=== PATIENT | male | born 1955 | race Caucasian/White ===

== ENCOUNTER → 2019-07-27 | Outpatient (CLI) | payer OTHER | END | disposition home or self-care (01) | LOC: RADUSWWP 12:58 | PROVIDERS: ATTEND Family Medicine | DX: I73.9 Peripheral vascular disease, unspecified (principal) | CPT/HCPCS: 93922 ==

== ENCOUNTER 2019-08-01 14:12 | Emergency (ER) | payer OTHER ==
[2019-08-01 14:22] VITALS: PULSE 75
--- NOTE | 2019-08-01 15:00 | ED ---
Abdominal Pain HPI - General Chief Complaint: Abdominal Pain Stated Complaint: Possible bowel blockage Time Seen by Provider: 08/01/19 14:17 Source: patient, RN notes reviewed Mode of arrival: ambulatory Limitations: no limitations - History of Present Illness Initial Comments: 63-year-old male presents emergency Department with chief complaint of abdominal pain, abdominal bloating 3 days. Patient has not passed any gas or stool 3 days ago that she is constipated took some laxatives with no improvement. Patient was seen at urgent care when she had x-rays and showed dilated bowel loops. Patient was sent over for further evaluation rule out bowel obstruction. Patient's had prior hernia repair, has no difficulty with urination no dysuria no fevers or chills he's had some nausea without vomiting no chest pain or shortness breath. - Related Data Previous Rx's Medication Instructions Recorded Ondansetron Odt [Zofran Odt] 4 mg PO Q8HR PRN #10 tab 08/01/19 Tamsulosin [Flomax] 0.4 mg PO DAILY #7 cap 08/01/19 Allergies Allergy/AdvReac Type Severity Reaction Status Date / Time No Known Allergies Allergy Verified 08/01/19 14:16 Review of Systems ROS Statement: Those systems with pertinent positive or pertinent negative responses have been documented in the HPI. ROS Other: All systems not noted in ROS Statement are negative. Past Medical History Past Medical History: Hypertension Additional Past Medical History / Comment(s): kidney stones History of Any Multi-Drug Resistant Organisms: None Reported Past Surgical History: Hernia Repair Additional Past Surgical History / Comment(s): lithotripsy Past Psychological History: No Psychological Hx Reported Smoking Status: Never smoker Past Alcohol Use History: Daily Past Drug Use History: None Reported General Exam Limitations: no limitations General appearance: alert, in no apparent distress Head exam: Present: atraumatic, normocephalic, normal inspection Neck exam: Present: normal inspection. Absent: tenderness, meningismus, lymphadenopathy Respiratory exam: Present: normal lung sounds bilaterally. Absent: respiratory distress, wheezes, rales, rhonchi, stridor Cardiovascular Exam: Present: regular rate, normal rhythm, normal heart sounds. Absent: systolic murmur, diastolic murmur, rubs, gallop, clicks GI/Abdominal exam: Present: soft, distended, tenderness, normal bowel sounds. Absent: guarding, rebound, rigid Back exam: Absent: CVA tenderness (R), CVA tenderness (L) Neurological exam: Present: alert, oriented X3 Skin exam: Present: warm, dry, intact, normal color. Absent: rash Course Vital Signs 08/01/19 14:17 Temperature 97.9 F Pulse Rate 75 Respiratory 18 Rate Blood Pressure 166/102 O2 Sat by Pulse 99 Oximetry Medical Decision Making - Medical Decision Making Patient CT shows evidence of a right distal ureter calculi 9 mm. Patient is advised that he is to follow-up with urology. He essentially has no pain at this time. History of function is mildly elevated though this may be chronic in nature. Patient will be discharged with Flomax,, codeine, Zofran and urology phone number. - Lab Data Result diagrams: 08/01/19 14:45 08/01/19 14:45 Lab Results 08/01/19 08/01/19 08/01/19 Range/Units 14:45 14:45 14:45 WBC 9.4 (3.8-10.6) k/uL RBC 4.98 (4.30-5.90) m/uL Hgb 15.6 (13.0-17.5) gm/dL Hct 43.4 (39.0-53.0) % MCV 87.1 (80.0-100.0) fL MCH 31.3 (25.0-35.0) pg MCHC 35.9 (31.0-37.0) g/dL RDW 12.6 (11.5-15.5) % Plt Count 228 (150-450) k/uL Neutrophils % 75 % Lymphocytes % 14 % Monocytes % 7 % Eosinophils % 2 % Basophils % 1 % Neutrophils # 7.0 (1.3-7.7) k/uL Lymphocytes # 1.3 (1.0-4.8) k/uL Monocytes # 0.6 (0-1.0) k/uL Eosinophils # 0.2 (0-0.7) k/uL Basophils # 0.1 (0-0.2) k/uL PT (9.0-12.0) sec INR (<1.2) APTT (22.0-30.0) sec Sodium 138 (137-145) mmol/L Potassium 4.5 (3.5-5.1) mmol/L Chloride 100 (98-107) mmol/L Carbon Dioxide 28 (22-30) mmol/L Anion Gap 10 mmol/L BUN 22 H (9-20) mg/dL Creatinine 1.56 H (0.66-1.25) mg/dL Est GFR (CKD-EPI)AfAm 54 (>60 ml/min/1.73 sqM) Est GFR (CKD-EPI)NonAf 46 (>60 ml/min/1.73 sqM) Glucose 105 H (74-99) mg/dL Plasma Lactic Acid Venkat 1.2 (0.7-2.0) mmol/L Calcium 9.5 (8.4-10.2) mg/dL Total Bilirubin 1.7 H (0.2-1.3) mg/dL AST 31 (17-59) U/L ALT 18 (4-49) U/L Alkaline Phosphatase 112 (38-126) U/L Total Protein 8.0 (6.3-8.2) g/dL Albumin 4.9 (3.5-5.0) g/dL Amylase 43 (30-110) U/L Lipase 58 (23-300) U/L 08/01/19 Range/Units 14:45 WBC (3.8-10.6) k/uL RBC (4.30-5.90) m/uL Hgb (13.0-17.5) gm/dL Hct (39.0-53.0) % MCV (80.0-100.0) fL MCH (25.0-35.0) pg MCHC (31.0-37.0) g/dL RDW (11.5-15.5) % Plt Count (150-450) k/uL Neutrophils % % Lymphocytes % % Monocytes % % Eosinophils % % Basophils % % Neutrophils # (1.3-7.7) k/uL Lymphocytes # (1.0-4.8) k/uL Monocytes # (0-1.0) k/uL Eosinophils # (0-0.7) k/uL Basophils # (0-0.2) k/uL PT 10.1 (9.0-12.0) sec INR 0.9 (<1.2) APTT 24.3 (22.0-30.0) sec Sodium (137-145) mmol/L Potassium (3.5-5.1) mmol/L Chloride (98-107) mmol/L Carbon Dioxide (22-30) mmol/L Anion Gap mmol/L BUN (9-20) mg/dL Creatinine (0.66-1.25) mg/dL Est GFR (CKD-EPI)AfAm (>60 ml/min/1.73 sqM) Est GFR (CKD-EPI)NonAf (>60 ml/min/1.73 sqM) Glucose (74-99) mg/dL Plasma Lactic Acid Venkat (0.7-2.0) mmol/L Calcium (8.4-10.2) mg/dL Total Bilirubin (0.2-1.3) mg/dL AST (17-59) U/L ALT (4-49) U/L Alkaline Phosphatase (38-126) U/L Total Protein (6.3-8.2) g/dL Albumin (3.5-5.0) g/dL Amylase (30-110) U/L Lipase (23-300) U/L Disposition Clinical Impression: Right ureteral calculus Disposition: HOME SELF-CARE Condition: Stable Instructions (If sedation given, give patient instructions): Kidney Stones (ED) Additional Instructions: Please return to the Emergency Department if symptoms worsen or any other concerns. Prescriptions: Tamsulosin [Flomax] 0.4 mg PO DAILY #7 cap Ondansetron Odt [Zofran Odt] 4 mg PO Q8HR PRN #10 tab PRN Reason: Nausea Is patient prescribed a controlled substance at d/c from ED?: No Referrals: Ellis Alamo MD [Primary Care Provider] - 1-2 days Rufino Jain MD [STAFF PHYSICIAN] - 1-2 days Time of Disposition: 16:13
[2019-08-01 15:04] LABS: Basophils # (A) 0.1 k/uL (0-0.2); Basophils % (A) 1 %; Eosinophils # (A) 0.2 k/uL (0-0.7); Eosinophils % (A) 2 %; HCT 43.4 % (39.0-53.0); HGB 15.6 gm/dL (13.0-17.5); Lymphocytes # (A) 1.3 k/uL (1.0-4.8); Lymphocytes % (A) 14 %; MCH 31.3 pg (25.0-35.0); MCHC 35.9 g/dL (31.0-37.0); MCV 87.1 fL (80.0-100.0); Mean Platelet Volume 7.3; Monocytes # (A) 0.6 k/uL (0-1.0); Monocytes % (A) 7 %; Neutrophils % (A) 75 %; Platelet Count 228 k/uL (150-450); RBC 4.98 m/uL (4.30-5.90); RDW 12.6 % (11.5-15.5); WBC 9.4 k/uL (3.8-10.6)
[2019-08-01 15:15] LABS: Albumin 4.9 g/dL (3.5-5.0); Calcium 9.5 mg/dL (8.4-10.2); Potassium 4.5 mmol/L (3.5-5.1); Total Bilirubin 1.7 mg/dL (0.2-1.3)
[2019-08-01 15:17] LABS: INR 0.9 (<1.2); Partial Thromboplastin Time 24.3 sec (22.0-30.0); Prothrombin Time 10.1 sec (9.0-12.0)
--- NOTE | 2019-08-01 15:51 | CT ---
EXAMINATION TYPE: CT abdomen pelvis w con DATE OF EXAM: 08/01/2019 COMPARISON: Outside abdominal x-ray earlier today. HISTORY: periumbilical pain rule out obstruction. CT DLP: 1130.4 mGycm, Automated Exposure Control for Dose Reduction was Utilized. CONTRAST: CT scan of the abdomen and pelvis is performed without oral but with IV Contrast, patient injected wi th 80 mL of Isovue 300. FINDINGS: LUNG BASES: No significant abnormality is appreciated. LIVER/GB: No significant abnormality is appreciated. PANCREAS: No significant abnormality is seen. SPLEEN: No significant abnormality is seen. ADRENALS: No significant abnormality is seen. KIDNEYS: There is symmetric cortical medullary uptake and excretion from both kidneys but there is as ymmetric moderate to severe right-sided hydronephrosis and hydroureter up to obstructing 9 mm calculu s distal right ureter at image 71. This corresponds to lesion over right sacrum at level of inferior sacroiliac joint on outside x-ray. There is additional punctate 1 mm nonobstructing calculus right ki dney upper to midpole level coronal image 58 and mid to lower pole level coronal image 46 1 to 2 mm s tone. Suspect additional 1 mm nonobstructing calculus midpole left kidney coronal image 61. No left-s ided hydronephrosis. No intraluminal calculus in the bladder. BOWEL: No suspicious small or large bowel dilatation. Stomach poorly distended and thus suboptimally evaluated. PROSTATE/SEMINAL VESICLES: Mildly enlarged prostate gland consistent with BPH bulging of bladder base . LYMPH NODES: No greater than 1cm abdominal or pelvic lymph nodes are appreciated. OSSEOUS STRUCTURES: Mild height loss superior L3 endplate. Mild height loss superior T12 endplate. Mo derate disc space narrowing lumbosacral junction. OTHER: No significant additional abnormality is seen. IMPRESSION: 1. There is 9 mm obstructing stone distal right ureter causing fairly severe right-sided hydronephros is but not delayed excretion. Urology consultation is advised.
[2019-08-01] MEDS ORDERED: ACET/COD 300 MG/30 MG STARTER PACK 6 TAB BTL PO STA (16:14)
[2019-08-01 16:39] VITALS: BP 145/87; RESP 16; TEMP 98.4
== END 2019-08-01 16:40 | disposition home or self-care (01) ==
LOC: EC 14:12
DX: N13.2 Hydronephrosis with renal and ureteral calculous obstruction (principal); I10 Essential (primary) hypertension
CPT/HCPCS: 36415; 80053; 82150; 83605; 83690; 85025; 85610; 85730; 74177; 99284; Q9967

== ENCOUNTER → 2019-09-05 | Outpatient (CLI) | payer OTHER ==
--- NOTE | 2019-09-05 14:20 | US ---
EXAMINATION TYPE: US kidneys/renal and bladder DATE OF EXAM: 09/05/2019 COMPARISON: CT abdomen and pelvis August 01, 2019 CLINICAL HISTORY: N13.30 Unspecified hydronephrosis. Follow up, history of kidney stones and right hy dronephrosis EXAM MEASUREMENTS: Right Kidney: 11.5 x 5.3 x 5.5 cm Left Kidney: 10.7 x 5.5 x 5.0 cm Right Kidney: 1.1cm cystic area medial mid pole, dilated renal pelvis Left Kidney: 0.4cm echogenic focus mid pole Bladder: not fully distended, appears wnl as seen Bilateral Jets seen: left jet seen, right jet not seen Right kidney technologist marked simple appearing 1.0 cm cyst centrally midpole level likely correspo nding to lesion axial image 28. Persistent mild to moderate right-sided pyelocaliectasis less promine nt than recent CT. Left kidney shows no hydronephrosis. Technologist marked a 4 mm nonshadowing hyper echoic focus centrally carotid corresponds to the 2 mm nonobstructing calculus left kidney coronal im age 60. Bladder satisfactorily distended with prominent prostate gland bulging and base. Distal left ureter jet is seen. IMPRESSION: Persistent mild to moderate right-sided hydronephrosis appears slightly less prominent ve rsus recent CT but nonvisualization of distal right ureter jet makes persistent obstructing ureter st one likely still present. Correlate clinically.
== END ==
LOC: RADUSWWP 13:42
PROVIDERS: ATTEND Urology
DX: N13.30 Unspecified hydronephrosis (principal)
CPT/HCPCS: 76770

== ENCOUNTER → 2020-05-15 | Outpatient (CLI) | payer MEDICARE, OTHER ==
[~2020-05-15] MED LIST: ATROPINE SULFATE 0.1 MG/ML 10ML SYRINGE ONE
--- NOTE | 2020-05-15 12:00 | ECHOF ---
Referral Reason:lv function MEASUREMENTS -------- HEIGHT: 182.9 cm WEIGHT: 87.5 kg BP: 112/59 RVIDd: 4.3 cm (< 3.3) IVSd: 1.5 cm (0.6 - 1.1) LVIDd: 4.3 cm (3.9 - 5.3) LVPWd: 1.5 cm (0.6 - 1.1) IVSs: 1.6 cm LVIDs: 2.9 cm LVPWs: 1.8 cm LAESV Index (A-L): 29.37 ml/m Ao Diam: 3.1 cm (2.0 - 3.7) AV Cusp: 2.0 cm (1.5 - 2.6) MV EXCURSION: 20.180 mm (> 18.000) MV EF SLOPE: 122 mm/s (70 - 150) EPSS: 0.8 cm MV E Rocky: 0.68 m/s MV DecT: 270 ms MV A Rocky: 0.85 m/s MV E/A Ratio: 0.80 RAP: 5.00 mmHg RVSP: 30.60 mmHg FINDINGS -------- This was a technically adequate study. The left ventricular size is normal. There is moderate concentric left ventricular hypertrophy. O verall left ventricular systolic function is mildly impaired with, an EF between 45 - 50 %. Mid lat eral LV wall motion is hypokinetic. Apical anterior LV wall motion is hypokinetic. Apical later al LV wall motion is hypokinetic. The right ventricle is moderately enlarged. LA is midly dilated 29-33ml/m2. The right atrium is mildly enlarged. Interatrial and interventricular septum intact. The aortic valve is trileaflet and appears structurally normal. There is no evidence of aortic regu rgitation. There is no evidence of aortic stenosis. Mild mitral regurgitation is present. Mild tricuspid regurgitation present. There is no evidence of pulmonary hypertension. The right v entricular systolic pressure, as measured by Doppler, is 30.60mmHg. Trace/mild (physiologic) pulmonic regurgitation. The aortic root size is normal. IVC Not well visulized. There is no pericardial effusion. CONCLUSIONS -------- 1. The left ventricular size is normal. 2. There is moderate concentric left ventricular hypertrophy. 3. Overall left ventricular systolic function is mildly impaired with, an EF between 45 - 50 %. 4. Mid lateral LV wall motion is hypokinetic. 5. Apical anterior LV wall motion is hypokinetic. 6. Apical lateral LV wall motion is hypokinetic. 7. The right ventricle is moderately enlarged. 8. LA is midly dilated 29-33ml/m2. 9. The right atrium is mildly enlarged. 10. Mild mitral regurgitation is present. 11. Mild tricuspid regurgitation present. 12. Trace/mild (physiologic) pulmonic regurgitation. PSYCHIATRIC SECRETARY: Deepa Omalley RDCS
[2020-05-15 13:35] LABS: Basophils # (A) 0.1 k/uL (0-0.2); Basophils % (A) 1 %; Eosinophils # (A) 0.5 k/uL (0-0.7); Eosinophils % (A) 8 %; HCT 44.8 % (39.0-53.0); HGB 14.9 gm/dL (13.0-17.5); Lymphocytes # (A) 1.3 k/uL (1.0-4.8); Lymphocytes % (A) 23 %; MCH 29.8 pg (25.0-35.0); MCHC 33.2 g/dL (31.0-37.0); MCV 89.7 fL (80.0-100.0); Mean Platelet Volume 7.2; Monocytes # (A) 0.3 k/uL (0-1.0); Monocytes % (A) 6 %; Neutrophils # (A) 3.5 k/uL (1.3-7.7); Neutrophils % (A) 61 %; Platelet Count 237 k/uL (150-450); RBC 4.99 m/uL (4.30-5.90); RDW 13.4 % (11.5-15.5); WBC 5.7 k/uL (3.8-10.6)
[2020-05-15 13:52] LABS: ALT 21 U/L (4-49); AST 34 U/L (17-59); African American GFR (CKD) >90 (>60 ml/min/1.73 sqM); Albumin 4.7 g/dL (3.5-5.0); Alkaline Phosphatase 72 U/L (38-126); Anion Gap 5 mmol/L; Blood Urea Nitrogen 11 mg/dL (9-20); Calcium 9.4 mg/dL (8.4-10.2); Carbon Dioxide 31 mmol/L (22-30); Chloride 103 mmol/L (98-107); Glucose 91 mg/dL (74-99); Magnesium 2.1 mg/dL (1.6-2.3); Non-African American GFR(CKD) 89 (>60 ml/min/1.73 sqM); Sodium 139 mmol/L (137-145); Total Bilirubin 1.2 mg/dL (0.2-1.3); Total Protein 7.4 g/dL (6.3-8.2)
--- NOTE | 2020-05-15 18:09 | CONS ---
CONSULTATION CHIEF COMPLAINT: Chest pain. This is a 64-year-old gentleman with history of hypertension and strong family history of premature coronary artery disease who presented to [facility] for a stress test. The patient stated that he had been having chest discomfort with activity. He is normally getting this chest pain after walking for 3 or 4 minutes on the treadmill. He describes it as a moderate intensity pericardial chest pressure that radiates to his left arm. It is relieved with rest. His baseline EKG shows ST-T wave changes in the anterolateral leads suggestive of ischemia. The resting echocardiogram showed apical hypokinesis. Due to this, I cancelled his stress test and advised him to undergo cardiac catheterization. I asked him to get admitted and have the catheterization done tomorrow. Patient refused. He will go home on aspirin, beta blockers, nitrates. Will check the statins and start him on statins. I will do his cardiac catheterization tomorrow. PAST MEDICAL HISTORY: Past medical history is significant for hypertension. MEDICATION: Atenolol. ALLERGIES: NONE. FAMILY HISTORY: Significant for premature coronary artery disease. SOCIAL HISTORY: Negative for current smoking, ETOH abuse or drug abuse. REVIEW OF SYSTEMS: HEENT is unremarkable. CARDIAC: As described above. RESPIRATORY: Negative. GI: Negative. GENITOURINARY: Negative. ALLERGY: Negative. IMMUNOLOGY: Negative. SKIN: Negative. MUSCULOSKELETAL: Negative. ENDOCRINE: Negative. HEMATOLOGICAL: Negative. DERMATOLOGY: Negative. CONSTITUTIONAL: Negative. PHYSICAL EXAMINATION: On exam, patient is comfortable at rest. Vital signs are stable. There is no jugular venous distention. Carotid upstroke is normal. There is no bruit. Chest exam reveals good air entry bilaterally. Heart exam reveals first and second heart sounds. No gallop. No murmur. No rub. Abdomen is soft, nontender. Examination of the extremities did not reveal any edema. Peripheral pulses are felt. [employer] exam did not reveal focal neurological deficits. ASSESSMENT: 1. New-onset exertional chest pain. Rule out CAD. 2. Hypertension. PLAN: Will schedule the patient for a catheterization tomorrow and decide on further course of action based on the cardiac catheterization findings. MMODL / IJN: [id number] /
== END | disposition home or self-care (01) ==
LOC: RADNMMAIN 10:15
PROVIDERS: ATTEND Family Medicine
DX: I08.1 Rheumatic disorders of both mitral and tricuspid valves (principal); R07.9 Chest pain, unspecified
CPT/HCPCS: 80053; 83735; 85025; 93306

== ENCOUNTER 2020-05-16 09:23 | Day surgery (SDC) | payer MEDICARE, OTHER ==
[~2020-05-16 09:23] MED LIST changes: +ALPRAZolam 0.25 MG TAB PO PRN; +ALPRAZolam 0.5 MG TAB PO PRN; +ASPIRIN 325 MG TAB PO ONE; -ATROPINE SULFATE 0.1 MG/ML 10ML SYRINGE ONE; +NITROGLYCERIN SL TABS 0.4 MG TAB SUBLINGUAL PRN; +SODIUM CHLORIDE 0.9% 1,000 ML in EMPTY BAG 1 BAG IV ONE
[2020-05-16 10:03] LABS: Basophils # (A) 0.1 k/uL (0-0.2); Basophils % (A) 1 %; Eosinophils # (A) 0.5 k/uL (0-0.7); Eosinophils % (A) 9 %; HCT 44.9 % (39.0-53.0); HGB 15.1 gm/dL (13.0-17.5); Lymphocytes # (A) 1.5 k/uL (1.0-4.8); Lymphocytes % (A) 26 %; MCH 29.8 pg (25.0-35.0); MCHC 33.6 g/dL (31.0-37.0); MCV 88.6 fL (80.0-100.0); Mean Platelet Volume 7.4; Monocytes # (A) 0.4 k/uL (0-1.0); Monocytes % (A) 7 %; Neutrophils # (A) 3.1 k/uL (1.3-7.7); Neutrophils % (A) 56 %; Platelet Count 234 k/uL (150-450); RBC 5.07 m/uL (4.30-5.90); RDW 12.8 % (11.5-15.5); WBC 5.7 k/uL (3.8-10.6)
[2020-05-16 10:12] LABS: African American GFR (CKD) >90 (>60 ml/min/1.73 sqM); Anion Gap 5 mmol/L; Blood Urea Nitrogen 16 mg/dL (9-20); Carbon Dioxide 30 mmol/L (22-30); Chloride 104 mmol/L (98-107); Glucose 98 mg/dL (74-99); Non-African American GFR(CKD) >90 (>60 ml/min/1.73 sqM); Potassium 4.4 mmol/L (3.5-5.1); Sodium 139 mmol/L (137-145)
[2020-05-16] MEDS ORDERED: LIDOCAINE 1% INJ 10MG/ML (20 ML MDV) ONE (10:30)
[2020-05-16] MEDS ORDERED: fentaNYL (PF) 50 MCG/ML 2 ML AMP ONE (10:30)
[2020-05-16] MEDS ORDERED: fentaNYL (PF) 50 MCG/ML 2 ML AMP IV ONE (10:52)
[2020-05-16] MEDS ORDERED: MIDAZOLAM 2 MG/2 ML VIAL IV ONE (10:52)
[2020-05-16] MEDS ORDERED: LIDOCAINE 1% INJ 10MG/ML (20 ML MDV) SQ ONE (10:55)
[2020-05-16] MEDS ORDERED: HEPARIN SODIUM 1,000 UN/ML (10ML VL) ONE (11:18)
[2020-05-16] MEDS: HEPARIN SODIUM 1,000 UN/ML (10ML VL) IV ONE ×3 (11:20→12:15)
[2020-05-16] MEDS ORDERED: CLOPIDOGREL 75 MG TAB ONE (11:20)
[2020-05-16] MEDS ORDERED: CLOPIDOGREL 75 MG TAB PO ONE (11:23)
[2020-05-16] MEDS: NITROGLYCERIN 1000MCG/10ML SYRINGE INTRACORON ONE ×2 (11:36→11:43)
[2020-05-16] MEDS ORDERED: IOPAMIDOL-370 125ML BTL INJ ONE (11:37)
[2020-05-16] MEDS ORDERED: ATROPINE SULFATE 0.1 MG/ML 10ML SYRINGE IV ONE (11:45)
[2020-05-16] MEDS ORDERED: NOREPINEPHRINE 4 MG in SODIUM CHLORIDE 0.9% 250 ML IV ONE (11:47)
[2020-05-16] MEDS ORDERED: IOPAMIDOL-370 100ML BTL INJ ONE ×2 (12:12→12:20)
[2020-05-16] MEDS ORDERED: ZOLPIDEM 5 MG TAB PO PRN (13:08)
[2020-05-16] MEDS ORDERED: RX INFO: IV CONTRAST WAS GIVEN 1 EACH MISC MISCELLANE PRN (13:08)
[2020-05-16] MEDS ORDERED: ATROPINE SULFATE 0.1 MG/ML 10ML SYRINGE IV PRN (13:08)
[2020-05-16] MEDS ORDERED: MAG HYDROX/AL HYDROX/SIMETH 30 ML CUP PO PRN (13:08)
[2020-05-16] MEDS ORDERED: NITROGLYCERIN SL TABS 0.4 MG TAB SUBLINGUAL PRN (13:08)
--- NOTE | 2020-05-16 13:08 | P.PRCINT ---
Percutaneous Coronary Int. - Percutaneous Coronary Intervention Percutaneous Coronary Intervention: Percutaneous Coronary Intervention: PROCEDURES PERFORMED: Selective bilateral coronary angiography, successful PCI of mid LAD with overlapping 3.5 x 15 mm and 3.0 x 12 mm Xience DESHAUN, IVUS LAD. INDICATION: abnormal stress test, class III angina HISTORY: Patient is a pleasant 64-year-old male who has been experiencing chest pain with exertion on the treadmill for the past 1 year. He is scheduled to have a stress test performed which showed anterior lateral EKG changes and therefore patient was scheduled for a heart catheterization.Patient had a diagnostic catheterization performed by my partner and I was asked to evaluate for possible PCI. PROCEDURE: After the risks, benefits and alternatives of the above mentioned procedure explained in detail with the patient, informed consent was obtained. The decision was made to intervene on the mid LDA. A 6Fr sheath had been placed in the right femoral artery using modified Seldinger technique previously. A 6Fr CLS 3.5 guide catheter was used to engage the left main. A 0.014 BMW wire was advanced into the distal vessel without difficulty. The lesion was predilated with a 3.5 mm x 8 mm balloon. Next, a 3.5 x 15 mm Xience DESHAUN was deployed. unfortunately patient had no reflow with hypotension with systolics in the 50s to 60s. Left femoral access was obtained for possible Impella placement and due to concern of RCA occlusion right coronary angiography was performed showing similar anatomy as the diagnostic films. Patient was started on levophed with improvement of pressure. IVUS was performed of the LAD which showed reference vessel approximately 3.5-4.0 mm proximally and concern of small dissection at the disatl edge of the stent with diffuse calcification. Therefore a second 3.0 x 12mm Xience DESHAUN was placed overlapping at the distal edge of the stent. The proximal and mid stent was postdilated with a 4.0mm NC balloon. Repeat IVUS showed good stent expansion, no dissection. Preintervention there was a 75-80% stenosis and JENNY 3 flow and post intervention there was 0% residual stenosis and JENNY 3 flow without evidence of dissection. The wire was removed and final angiograms were taken. The right femoral sheath was left in place as anatomy was not suitable for Angioseal. The left femoral angiogram showed adequate anatomy for closure and a 6Fr Angioseal was successfully placed. The patient tolerated the procedure well. Patient was transported back to the post catheterization holding area in stable condition. Conscious Sedation: Patient was monitored under the direct supervision of vision of myself for conscious sedation using Versed and fentanyl for a total duration of 66 minutes HEMODYNAMICS: Ao 110/56 SELECTIVE CORONARY ARTERIOGRAPHY: LEFT MAIN: The left main is a large caliber vessel which bifurcates into the LAD and circumflex. There is no significant stenosis. LEFT ANTERIOR DESCENDING CORONARY ARTERY: LAD is a large caliber vessel which wraps around to the apex. There is a mid LAD 75-80% stenosis and diffuse mild luminal irregularities elsewhere. There is a small to moderate caliber diagonal 1 branch which has JENNY 1 flow and there are collaterals from the RCA. Diagonal 2 is small caliber and has a proximal 60% stenosis. LEFT CIRCUMFLEX CORONARY ARTERY: Left circumflex is a moderate caliber vessel without mid 30% stenosis. There is a small caliber OM1 which has 90% proximal stenosis and JENNY 1 flow. RIGHT CORONARY ARTERY: The right coronary artery is a large caliber vessel which gives off a PDA and PLV branch and is the dominant vessel. There is a mid to distal 60-70% stenosis. FINAL IMPRESSION: 1. CAD as described above 2. Successful PCI of mid LAD with overlapping 3.5 x 15 mm and 3.0 x 12 mm Xience DESHAUN PLAN: 1. Aggressive risk factor modification per most recent ACC/AHA guidelines. 2. Follow-up in the office in 1-2 weeks. Would treat OM1, diagonal 1 and distal RCA medically. If patient has recurrent angina, could consider iFR or functional testing of RCA with possible intervention of RCA.
--- NOTE | 2020-05-16 17:57 | LTR ---
May 16, 2020 To: Dr. Alamo Re: Ruben Mcdaniels (53) Dear Robert, I performed cardiac catheterization on Ruben Mcdaniels. A detailed catheterization note is enclosed for your records. In brief, the cardiac catheterization shows a tight focal stenosis involving mid LAD, and patient will undergo angioplasty with stent placement of the same. Thank you for giving us the privilege of participating in the care of this patient. Sincerely, Evaristo Lozoya M.D. ELIANA / MARCO: [id number] /
--- NOTE | 2020-05-16 17:57 | CC ---
CARDIAC CATHETERIZATION REPORT INDICATION: Unstable angina. PROCEDURE NOTE: After obtaining informed consent, left heart catheterization and coronary angiogram were performed via the right femoral artery using standard Noe catheters. Patient tolerated the procedure well without any obvious immediate complications. Patient received moderate conscious sedation and total sedation time was 14 minutes. FINDINGS: HEMODYNAMICS: Left ventricular end-diastolic pressure is 14 mm. There is no gradient across the aortic valve. LEFT VENTRICULOGRAM: Left ventriculogram was not performed. ANGIOGRAPHIC DATA LEFT MAIN CORONARY ARTERY: Left main coronary artery is a normal-sized vessel and is free of stenosis. It divides into left anterior descending coronary artery and circumflex coronary artery. LAD shows a focal area of stenosis in its mid portion with which at its worst seems to be 80% stenosed. There are [id number] collaterals from the distal RCA. Circumflex coronary artery and its branches are free of significant stenosis. RIGHT CORONARY ARTERY: Right coronary artery is a large dominant vessel that shows an atherosclerotic plaque at its bifurcation into PDA and PLV. At its worst it seems to be a 50% stenosis. CONCLUSION: Focal stenosis of 80% involving mid LAD. PLAN: Patient will undergo angioplasty with stent placement of the same. There is a small diagonal branch coming off the stenosed area. We will see how patient's symptoms evolve after the angioplasty, and if he continues to have symptoms we may have to address the right coronary artery lesion. MMODL / IJN: [id number] /
[2020-05-17] MEDS ORDERED: ATORVASTATIN 40 MG TAB PO SCH (09:00)
[2020-05-17] MEDS ORDERED: ASPIRIN 81 MG PO SCH (09:00)
[2020-05-17] MEDS ORDERED: CLOPIDOGREL 75 MG TAB PO SCH (09:00)
[2020-05-17 09:58] LABS: African American GFR (CKD) >90 (>60 ml/min/1.73 sqM); Non-African American GFR(CKD) >90 (>60 ml/min/1.73 sqM)
[2020-05-17 11:04] VITALS: BMI 25.9
[2020-05-17 11:38] VITALS: BP 133/74; PULSE 65; RESP 18; TEMP 98.1
--- NOTE | 2020-05-17 14:46 | DS ---
DISCHARGE SUMMARY DATE OF ADMISSION: 05/16/2020. DATE OF DISCHARGE: 05/17/2020. FINAL DIAGNOSES: Unstable angina procedures. PROCEDURES PERFORMED: 1. Left heart catheterization. 2. Angioplasty with stent placement of LAD. HISTORY: Mr. Mcdaniels is a 64-year-old gentleman who was having progressively worsening exertional chest pain and was sent for stress testing, He was found to have apical hypokinesis and was advised to undergo cardiac catheterization and I brought him in expeditiously the very next day and his cardiac catheterization revealed critical stenosis in the LAD and moderate disease involving distal RCA. The patient underwent angioplasty with stent placement of LAD which was complicated by a small dissection of the distal edge and he went on to have a 2nd stent. He was transiently hypotensive and but at the end had excellent outcome. The patient also had left femoral artery access for the same. The patient had a noneventful stay in the hospital. This morning, he is free of symptoms. Denies chest pain or difficulty in breathing. PHYSICAL EXAM: Heart rate is 60 beats per minute. Blood pressure is 137/70, respiratory 16, O2 saturation is 99%. Afebrile. There is no jugular venous distention. Chest exam reveals good air entry bilaterally. Heart exam reveals first and second heart sounds. No gallop. ABDOMEN: Soft. Exam of extremities did not reveal any edema. Peripheral pulses are palpable. Bilateral groins have been evaluated. Does not have any bleeding, bruit, hematoma. LABS: This morning show that the creatinine is normal at 0.8. An EKG shows sinus bradycardia without ST-T wave changes. The patient will be discharged. DISCHARGE MEDICATIONS: Patient will be discharged home on aspirin Plavix 75 mg daily, Lipitor 40 mg daily, sublingual nitroglycerine and Tenormin 25 mg daily. FOLLOWUP PLANS: Patient will be followed up in my office in a week's time. MMODL / IJN: [id number] /
== END 2020-05-17 15:38 | disposition home or self-care (01) ==
LOC: CATHCVL 09:23 → 3SCARD 15:47 → CATHCVL 05-17 15:38
PROVIDERS: ATTEND Internal Medicine Cardiovascular Disease
DX: I25.110 Atherosclerotic heart disease of native coronary artery with unstable angina pectoris (principal)
CPT/HCPCS: 93458; 80048; 82565; 85025; C9600; C1769 ×3; C1760; C1887 ×2; C1725 ×2; C1753; C1874; J2250; J2001; J0461; J3010; J1644; Q9967 ×2

== ENCOUNTER 2020-06-20 07:48 | Day surgery (SDC) | payer MEDICARE, OTHER ==
[2020-06-19 11:15] VITALS: BMI 26.2
[~2020-06-20 07:48] MED LIST changes: -ASPIRIN 325 MG TAB PO ONE; +ASPIRIN 325 MG TAB PO STA
[2020-06-20] MEDS ORDERED: LIDOCAINE 1% INJ 10MG/ML (20 ML MDV) ONE (08:22)
[2020-06-20 08:24] LABS: Basophils # (A) 0.1 k/uL (0-0.2); Basophils % (A) 2 %; Eosinophils # (A) 0.6 k/uL (0-0.7); Eosinophils % (A) 11 %; HCT 44.1 % (39.0-53.0); HGB 14.8 gm/dL (13.0-17.5); Lymphocytes # (A) 1.4 k/uL (1.0-4.8); Lymphocytes % (A) 24 %; MCH 30.9 pg (25.0-35.0); MCHC 33.7 g/dL (31.0-37.0); MCV 91.9 fL (80.0-100.0); Mean Platelet Volume 6.9; Monocytes # (A) 0.4 k/uL (0-1.0); Monocytes % (A) 7 %; Neutrophils % (A) 54 %; Platelet Count 226 k/uL (150-450); RDW 12.7 % (11.5-15.5); WBC 5.6 k/uL (3.8-10.6)
[2020-06-20 08:39] LABS: African American GFR (CKD) >90 (>60 ml/min/1.73 sqM); Anion Gap 6 mmol/L; Blood Urea Nitrogen 15 mg/dL (9-20); Calcium 8.9 mg/dL (8.4-10.2); Carbon Dioxide 27 mmol/L (22-30); Chloride 109 mmol/L (98-107); Glucose 99 mg/dL (74-99); Non-African American GFR(CKD) >90 (>60 ml/min/1.73 sqM); Sodium 142 mmol/L (137-145)
[2020-06-20 08:43] VITALS: RESP 18; TEMP 98.7
[2020-06-20 08:44] LABS: Potassium 4.7 mmol/L (3.5-5.1)
[2020-06-20] MEDS ORDERED: fentaNYL (PF) 50 MCG/ML 2 ML AMP ONE (09:02)
[2020-06-20] MEDS ORDERED: fentaNYL (PF) 50 MCG/ML 2 ML AMP IV ONE (09:19)
[2020-06-20] MEDS ORDERED: MIDAZOLAM 2 MG/2 ML VIAL IV ONE (09:19)
[2020-06-20] MEDS ORDERED: LIDOCAINE 1% INJ 10MG/ML (20 ML MDV) SQ ONE (09:23)
[2020-06-20] MEDS ORDERED: NITROGLYCERIN 1000MCG/10ML SYRINGE INTRACORON ONE (10:22)
[2020-06-20] MEDS ORDERED: IOPAMIDOL-370 125ML BTL INJ ONE (10:27)
--- NOTE | 2020-06-20 10:48 | P.PCN ---
Date of Procedure: 06/20/20 Description of Procedure: PROCEDURES PERFORMED: Selective right coronary angiography, iFR of RCA, Angio-Seal INDICATION: Abnormal stress test, class III angina HISTORY: Patient is a pleasant 64-year-old male with history of coronary artery disease with symptoms of shortness of breath and chest pain over the past one year. He did have heart catheterization performed approximately 1 month ago which did show significant LAD disease as well as small caliber diagonal 1, OM1 and an intermediate RCA lesion. He did have stenting of his LAD and has noted some improvement in his symptoms however with moderate activity such as jogging on a treadmill for 5 minutes he does get chest discomfort. He did have a stress test which showed primarily inferior lateral reversible ischemia and therefore repeat heart catheterization was recommended. Diagnostic procedure was performed by Dr. Lozoya and I was asked to evaluate for possible intervention of the RCA. PROCEDURE: After the risks, benefits and alternatives of the above mentioned procedure explained in detail with the patient, informed consent was obtained. The decision was made to iFR the RCA. A 6Fr sheath had been placed in the right femoral artery previously. A 6Fr AL 0.75 guide catheter was used to engage the RCA. A 0.014 pressure wire was advanced into the RCA and then normalized. The pressure wire was advanced approximately 1 cm distal to the lesion and I 5 measurements were obtained. The first measurement did have baseline drift and therefore repeat measurements were performed twice. Final iFR value was 0.91, nonsignificant. The wire was removed and final angiograms were taken. A right femoral angiogram was performed which showed adequate anatomy for closure. A 6-Ind[place]ian Angio-Seal was placed with hemostasis achieved. The patient tolerated the procedure well. Patient was transported back to the post catheterization holding area in stable condition. Conscious Sedation: Patient was monitored under the direct supervision of vision of myself for conscious sedation using Versed and fentanyl for a total duration of 23 minutes HEMODYNAMICS: Aorta: 142/75 SELECTIVE CORONARY ARTERIOGRAPHY: RIGHT CORONARY ARTERY: The right coronary artery is a large caliber vessel which gives off a PDA and PLV branch and is the dominant vessel. There is a distal RCA 50-60% stenosis. iFR value of 0.91 FINAL IMPRESSION: 1. iFR of RCA showing nonsignificant disease 2. Diagnostic angiography showing patent stent and residual stenosis of small caliber diagonal 1 and OM1. PLAN: 1. Aggressive risk factor modification per most recent ACC/AHA guidelines. 2. RCA iFR was negative and suspect his angina is from small caliber diagonal 1 and OM1 disease. Would recommend continued medical therapy of small caliber proximally 1.75 mm vessels. Follow-up in office in 1-2 weeks.
[2020-06-20] MEDS ORDERED: RX INFO: IV CONTRAST WAS GIVEN 1 EACH MISC MISCELLANE PRN (10:51)
--- NOTE | 2020-06-20 11:23 | CC ---
CARDIAC CATHETERIZATION REPORT INDICATION: A 64-year-old gentleman with known CAD, status post recent angioplasty of proximal LAD had a significant lesion in the distal RCA and an OM branch, underwent a stress test. He had symptoms, EKG changes and ischemia involving the inferolateral bone. Due to this, he was advised to undergo cardiac catheterization. He has been explained of risks, benefits and alternatives, understood and accepted. PROCEDURE NOTE: After obtaining informed consent, left heart catheterization and coronary angiogram were performed via the right femoral artery using standard Noe catheters. Patient tolerated the procedure well without any immediate complications. Patient received moderate conscious sedation. Total sedation time was 15 minutes. FINDINGS: HEMODYNAMICS: Left ventricular diastolic pressure 15 mm. There is no significant gradient across the aortic valve. LEFT VENTRICULOGRAM: Left ventriculogram was not performed. ANGIOGRAPHIC DATA: LEFT MAIN CORONARY ARTERY: Left main coronary artery is a normal-sized vessel and is free of stenosis. Divides into left anterior descending coronary artery and circumflex coronary artery. LAD was previously stented in the proximal part and the stent appears patent. The diagonal branch appears still in the stent and is subtotally occluded. CIRCUMFLEX CORONARY ARTERY: A large dominant vessel and is free of significant stenosis. It gives off an OM branch that has a long segment of 90%-95% stenosis. RIGHT CORONARY ARTERY: Right coronary artery is a large dominant vessel that is giving extensive collaterals to the left system and has a 60%-70% stenosis distally. CONCLUSION: 1. Patent stent within the LAD. 2. Small caliber OM branch that has significant disease. 3. A 60% to 70% stenosis involving the right coronary artery. PLAN: I am going to have Dr. Huerta review the angiogram and advise angioplasty of the right coronary artery or OM branch. MMODL / IJN: [id number] /
[2020-06-20 15:34] VITALS: BP 121/64; PULSE 64
== END 2020-06-20 16:15 | disposition home or self-care (01) ==
LOC: CATHCVL 07:48
PROVIDERS: ATTEND Internal Medicine Cardiovascular Disease
DX: I25.110 Atherosclerotic heart disease of native coronary artery with unstable angina pectoris (principal); R94.39 Abnormal result of other cardiovascular function study; R93.1 Abnormal findings on diagnostic imaging of heart and coronary circulation; R07.89 Other chest pain; Z95.5 Presence of coronary angioplasty implant and graft; Z79.82 Long term (current) use of aspirin; Z79.899 Other long term (current) drug therapy; Z79.02 Long term (current) use of antithrombotics/antiplatelets
CPT/HCPCS: 93571; 93458; 80048; 85025; C1769 ×2; C1760; C1887; C1894; J2250; J2001; J3010; J1644; Q9967

== ENCOUNTER → 2023-12-31 | Outpatient (CLI) | payer MEDICARE, OTHER ==
--- NOTE | 2024-01-01 02:59 | US ---
EXAMINATION TYPE: US prostate transrectal DATE OF EXAM: 12/31/2023 COMPARISON: NONE CLINICAL INDICATION: Male, 68 years old with history of R97.20 ELEVATED PROSTATE SPECIFIC ANTIGEN [PS A]; This examination was performed using the transrectal probe. EXAM MEASUREMENTS: Gland Size: 4.8 x 3.5 x 5.0cm Volume: 43.5ml Predicted PSA: 5.22 Actual PSA (if available):4.88 Enlarged heterogeneous gland IMPRESSION: Enlarged heterogenous prostate gland compatible with BPH. No ultrasound evidence for verenice picious lesion.
== END | disposition home or self-care (01) ==
LOC: RADUSWWP 12:53
PROVIDERS: ATTEND Family Medicine
DX: N40.0 Benign prostatic hyperplasia without lower urinary tract symptoms (principal); R97.20 Elevated prostate specific antigen [PSA]
CPT/HCPCS: 76872